=== PATIENT | male | born 1995 | race Caucasian/White ===

== ENCOUNTER → 2020-11-02 08:34 | Outpatient (CLI) | payer OTHER, SELFPAY ==
--- NOTE | ~2020-11-02 | XR_ITS ---
EXAMINATION: XR shoulder LT min 2V INDICATION: Left shoulder and upper arm pain TECHNIQUE: Four views of the left shoulder are submitted. COMPARISON: None FINDINGS: Bone alignment is normal. There is a small amorphous calcification projecting near the grea ter tuberosity of the left humerus. No donor site is identified. Glenohumeral and acromioclavicular j oint spaces are normal. Soft tissues are unremarkable. IMPRESSION: 1. Amorphous calcification near the greater tuberosity of the left humerus without donor site, most c onsistent with calcific tendinitis. Reviewed, dictated and finalized at location A. [facility] IMPRESSION: 1. Amorphous calcification near the greater tuberosity of the left humerus with out donor site, most consistent with calcific tendinitis.
== END ==
PROVIDERS: PCP Family Medicine; Visit Provider Nurse Practitioner Family
DX: S49.92XA Unspecified injury of left shoulder and upper arm, initial encounter (principal)
CPT/HCPCS: 73030

== ENCOUNTER 2024-03-08 10:15 | Emergency (ER) | payer OTHER, SELFPAY ==
[2024-03-08 10:34] VITALS: BP 164/103; PULSE 78; RESP 18; TEMP 36.6; O2SAT 100
--- NOTE | 2024-03-08 13:54 | ED.GENADULT ---
HPI - General Adult General Chief complaint: Wound/Laceration <Danish Rico MD - Last Filed: 03/08/24 18:57> Stated complaint: right finger lac <Danish Rico MD - Last Filed: 03/08/24 18:57> Time Seen by Provider: 03/08/24 13:10 <Danish Rico MD - Last Filed: 03/08/24 18:57> History of Present Illness HPI narrative: 28-year-old male present to the emergency department for evaluation for laceration to his right middle finger. Patient was at work and was working on installing a water found and brushed his hand against the sharp metal causing an avulsion laceration to the dorsal aspect his right middle finger. Patient is unsure if his tetanus is updated. Bleeding was resolved upon arrival to the emergency department <Danish Rico MD - Last Filed: 03/08/24 18:57> Related Data Allergies/adverse reactions: Allergies Allergy/AdvReac Type Severity Reaction Status Date / Time No Known Allergies Allergy Unknown Uncoded 03/08/24 10:17 <Danish Rico MD - Last Filed: 03/08/24 18:57> Review of Systems Review of Systems: All systems reviewed & are unremarkable except as noted in HPI and below <Danish Rico MD - Last Filed: 03/08/24 18:57> [facility] Past Medical History Medical History: Medical History Esophagitis Vomiting <Danish Rico MD - Last Filed: 03/08/24 18:57> Family History Family History: Family History Mother Hypertension Grandparent Carcinoma of colon Family history of malignant neoplasm of kidney <Danish Rico MD - Last Filed: 03/08/24 18:57> Social History Social History: Social History Smoking packs per day: 0.5 Smoking cigarettes per day: 10.0 Smoking status: Current every day smoker Alcohol intake: current Substance use: never Occupation/Education: occupation <Danish Rico MD - Last Filed: 03/08/24 18:57> Exam Narrative: APPEARANCE: Well appearing, no pain, no distress, well-nourished. HEAD: normocephalic, atraumatic. EYES: PERRLA/EOMI, conjunctivae clear. NOSE: Normal no drainage EARS:TMS clear with good light reflex. THROAT: Pharynx clear, no exudate. NECK: Supple. No adenopathy, no masses. RESPIRATORY: Airway patent, respirations nonlabored. Clear to auscultation bilaterally, no rales, rhonchi, wheezing. CARDIOVASCULAR: Regular rate and rhythm without murmurs rubs or gallops. ABDOMINAL: Soft, nontender, nondistended, normal bowel sounds MUSCULOSKELETAL: Moves all extremities. Strength/ROM intact, No edema, No calf tenderness. NEURO: Alert. Cranial nerves II through XII intact. Good gait. Good coordination SKIN: Laceration to right middle finger <Danish Rico MD - Last Filed: 03/08/24 18:57> Course Course Emergency Course: Patient's tetanus updated, patient's laceration was sutured and patient was discharged to home <Danish Rico MD - Last Filed: 03/08/24 18:57> Vital Signs Vital signs: Vital Signs Temperature 97.8 F 03/08/24 10:34 Pulse Rate 03/08/24 10:34 Respiratory Rate 18 03/08/24 10:34 Blood Pressure 164/103 H 03/08/24 10:34 Pulse Oximetry 100 03/08/24 10:34 Temperature 97.8 F 03/08/24 10:34 Pulse Rate 03/08/24 10:34 Respiratory Rate 03/08/24 10:34 Blood Pressure 164/103 H 03/08/24 10:34 Pulse Oximetry 100 03/08/24 10:34 <Danish Rico MD - Last Filed: 03/08/24 18:57> Vital Signs Temperature 97.8 F 03/08/24 10:34 Pulse Rate 03/08/24 10:34 Respiratory Rate 18 03/08/24 10:34 Blood Pressure 164/103 H 03/08/24 10:34 Pulse Oximetry 100 03/08/24 10:34 Temperature 97.8 F 03/08/24 10:34 Pulse Rate 78 06/24/24 10:34 Respiratory Rate 18 03/08/24 10:34 Blood Pressure 164/103 H 03/08/24 10:34 P
[2024-03-08] MEDS: TETANUS,DIPHTHERIA,AC PERTUSSIS ADULT (0.5 ML) BOOSTRIX IM (13:58)
== END 2024-03-08 15:25 | disposition home or self-care (01) ==
PROVIDERS: Emergency Provider Emergency Medicine; PCP Family Medicine
DX: S61.212A Laceration without foreign body of right middle finger without damage to nail, initial encounter (principal); F17.210 Nicotine dependence, cigarettes, uncomplicated; W26.8XXA Contact with other sharp object(s), not elsewhere classified, initial encounter; Y99.0 Civilian activity done for income or pay; Z23 Encounter for immunization
CPT/HCPCS: 12001; 90471; 90715; 99282